=== PATIENT | female | born 1980 | race Asian ===

== ENCOUNTER 2019-03-05 18:48 | Emergency (ER) | payer SELFPAY ==
[~2019-03-05] VITALS: Ht 152.4 cm; Wt 60.8 kg
[2019-03-05 18:59] VITALS: Ht 152.4 cm; Wt 60.8 kg
[2019-03-05 20:24] VITALS: BP 119/87
== END 2019-03-05 20:24 | disposition home or self-care (01) ==
LOC: ED 18:48
DX: H10.89 Other conjunctivitis (principal)